=== PATIENT | male | born 1995 | race Caucasian/White ===

== ENCOUNTER 2019-11-29 17:06 | Emergency (ER) | payer BC, SELFPAY ==
--- NOTE | ~2019-11-29 | XR_ITS ---
XR tibia fibula RT 2V DATE: 11/29/2019 17:44 INDICATION: Swelling and bruising; unknown injury. TECHNIQUE: AP and lateral views COMPARISON: None FINDINGS: No fracture or dislocation, periosteal reaction or bone destruction. IMPRESSION: Negative Reviewed, dictated and finalized at location A. IMPRESSION: Negative
[2019-11-29 17:20] VITALS: BP 145/85; PULSE 85; RESP 14; TEMP 37.2; O2SAT 99
--- NOTE | 2019-11-29 17:44 | ED.EXTPRO ---
HPI - Extremity Problem General Chief complaint: Extremity Problem,Nontraumatic Stated complaint: right leg swelling Source: patient Mode of arrival: ambulatory History of Present Illness HPI Narrative: this is a 24-year-old male that presents with some injury to his right mid rosas after he inadvertently fell, the patient was intoxicated at the time and not sure of any of the details, apparently on Tuesday while intoxicated he fell and currently has hematoma to his anterior mid rosas with some bruising around the the ankle not sure of how he fell currently his pain is well-controlled has good range of motion in his foot and ankle and there was no issues with calf pain or knee pain. The area is warm to touch in the anterior right rosas. Complaint: extremity pain and extremity swelling Onset (ago): day(s) Pain Consistency: constant Location: right Severity scale (1-10): 2 Quality: aching Radiation: none Relieving factors: nothing Exacerbating factors: weight bearing Related Data Home Medications Medication Instructions Recorded Confirmed No Home Medications 11/29/19 11/29/19 Allergies Allergy/AdvReac Type Severity Reaction Status Date / Time No Known Allergies Allergy Verified 11/29/19 17:26 Review of Systems Review of Systems: All systems reviewed & are unremarkable except as noted in HPI and below PMFSH Past Medical History Medical History Patient denies medical problems Exam Const: General: no acute distress and alert Orientation/consciousness: patient oriented x3 Limitations: altered mental status HENMT: Head: normal to inspection Eyes: Conjunctivae: conjunctivae normal Pupils: Equal, round and reactive pupils present EOM: EOMs intact bilaterally Neck: Neck: normal visual inspection and no lymphadenopathy Chest: Chest palpation & inspection: normal inspection of the chest Resp: Effort & Inspection: normal respiratory effort Cardio: Rate: regular rate Rhythm: regular rhythm GI: GI Palp: Yes Soft to palpation Auscultation: normal bowel sounds : Testes: Testes normal Skin: General skin exam: normal color Rashes: no rashes Neuro: General: patient oriented x3, moves all extremities, no meningeal signs and no focal motor deficits Extrem: Other: small hematoma that is warm and tender in his right mid rosas with ankle bruising with good range of motion in his ankle foot and knee. Course Course Emergency Course: Patient appears comfortable declined any type of pain medication. Vital Signs Vital signs: Vital Signs Temperature 37.2 C 11/29/19 17:20 Pulse Rate 85 11/29/19 17:20 Respiratory Rate 14 11/29/19 17:20 Blood Pressure 145/85 H 11/29/19 17:20 Pulse Oximetry 99 11/29/19 17:20 Temperature 37.2 C 11/29/19 17:20 Pulse Rate 85 11/29/19 17:20 Respiratory Rate 14 11/29/19 17:20 Blood Pressure 145/85 H 11/29/19 17:20 Pulse Oximetry 99 11/29/19 17:20 Critical Care Time Critical Care Time Critical Care Time: No Discharge Plan Discharge Clinical Impression: Cellulitis, Hematoma Patient Disposition: Home, Self-Care Condition: Stable Instructions: Antibiotic Form, Cellulitis (ED), Contusion in Adults (ED) Prescriptions: No Action No Home Medications RF: 0 Follow-up/Referrals: UNKNOWN,DOCTOR [Primary Care Provider] -
[2019-11-29] MEDS: cefTRIAXone 1 GM VIAL IM (18:00)
[2019-11-29] MEDS: LIDOCAINE HCL 1% LOCAL INJ 20 ML VIAL (18:00)
[2019-11-29 18:29] VITALS: RESP 15; O2SAT 100
== END 2019-11-29 18:29 | disposition home or self-care (01) ==
PROVIDERS: Emergency Provider Emergency Medicine
DX: S80.11XA Contusion of right lower leg, initial encounter (principal); S90.01XA Contusion of right ankle, initial encounter; L03.90 Cellulitis, unspecified; W19.XXXA Unspecified fall, initial encounter
CPT/HCPCS: 73590; 96372; 99283; J0696

== ENCOUNTER 2020-12-30 12:53 | Outpatient (CLI) | payer BC, SELFPAY ==
[2020-12-30 14:22] LABS: SARS-CoV-2 RNA PCR Negative (Negative)
== END 2020-12-30 12:54 | disposition home or self-care (01) ==
PROVIDERS: PCP Internal Medicine; Visit Provider Internal Medicine
DX: Z20.822 Contact with and (suspected) exposure to COVID-19 (principal)
CPT/HCPCS: C9803; U0003; U0005

== ENCOUNTER 2024-02-24 01:13 | Emergency (ER) | payer BC, SELFPAY ==
--- NOTE | ~2024-02-24 | CT_ITS ---
EXAMINATION: CT lumbar spine wo con DATE: 02/24/2024 01:36 INDICATION: Nontraumatic low back pain TECHNIQUE: Computed tomography (CT) of the lumbar spine was performed without intravenous contrast. A utomated exposure control and iterative reconstruction technique were employed. The dose-length produ ct was 1259.31 mGy-cm. COMPARISON: 01/27/2018 FINDINGS: Bone alignment is normal. Vertebral body heights are normal. No fracture. Unchanged small Schmorl's n odes at the inferior endplate of T10 through the superior endplate of L1. There is mild disc height l oss at L3-L4. There is a developmentally small lumbar central canal with short pedicles. Heterogeneou s diffuse hepatic steatosis. Visualized paravertebral soft tissues are unremarkable. The following di sc levels are specifically discussed: T9-T10 through L1-L2: The disc does not extend beyond the endplate margin. There is mild bilateral fa cet joint osteoarthritis. There is no neural foraminal stenosis. There is no central canal stenosis. L2-L3: Disc is mildly bulging. There is mild bilateral facet joint osteoarthritis. There is no neural foraminal stenosis. There is mild central canal stenosis. L3-L4: Disc is bulging. There is mild bilateral facet joint osteoarthritis. There is mild bilateral n eural foraminal stenosis. There is mild to moderate central canal stenosis. L4-L5: Disc is bulging. There is mild to moderate bilateral facet joint osteoarthritis. There is mode rate left and mild to moderate right neural foraminal stenosis. There is mild central canal stenosis. L5-S1: Disc is bulging. There is mild to moderate bilateral facet joint osteoarthritis. There is mode rate bilateral neural foraminal stenosis. There is mild central canal stenosis. IMPRESSION: 1. Mild interval progression in still mild lumbar central canal stenosis superimposed over a congenit ally small lumbar central canal. Reviewed, dictated and finalized at location A. ISH COLLECTOR IMPRESSION: 1. Mild interval progression in still mild lumbar central canal stenosis superi mposed over a congenitally small lumbar central canal.
[2024-02-24 01:13] VITALS: BP 160/106; PULSE 102; RESP 16; TEMP 36.4; O2SAT 98
--- NOTE | 2024-02-24 01:19 | ED.GENADULT ---
HPI - General Adult General Chief complaint: Back Pain/Injury Stated complaint: back pain Time Seen by Provider: 02/24/24 01:15 History of Present Illness HPI narrative: Prashanth is a previously healthy 28M that presented to the ED with back pain. He has had non-radiating bilateral low back pain for 2 weeks but it was severe tonight so he came to the ED. There have been no falls, trauma or injury. No loss of bowel/bladder control or fevers reported. Related Data Allergies Allergy/AdvReac Type Severity Reaction Status Date / Time No Known Allergies Allergy Verified 02/24/24 01:15 Review of Systems Review of Systems: All systems reviewed & are unremarkable except as noted in HPI and below [facility] Past Medical History Medical History (Updated 02/24/24 @ 02:02 by Jesus Alberto Rodriguez DO) Patient denies medical problems Exam Const: General: cooperative, healthy appearing, comfortable, no acute distress, well developed, alert, awake and Physically active Orientation/consciousness: oriented to person, oriented to place and oriented to time HENMT: Head: normal to inspection, normocephalic and atraumatic Ears: hearing grossly normal bilaterally and external ears normal Face/Nose/Sinus: Normal external nose present Eyes: General: appearance normal, both eyes and all related structures Periorbital: periorbital findings normal Sclera: sclerae normal Pupils: Equal, round and reactive pupils present Neck: Neck: normal visual inspection Chest: Chest palpation & inspection: normal inspection of the chest Resp: Effort & Inspection: normal respiratory effort, able to speak in complete sentences and no respiratory distress Cardio: Jugular venous distension: no JVD Back/Spine/Pelvis: Other: Midline tenderness in the lumbar spine. Bilateral hypertonic musculature in the lumbar spine. 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 Mild spinal canal stenosis L3-4 from disc bulge No acute findings CBC unremarkable. Chemistries showed mildly elevated LFTs. He was instructed to f/u with his primary on this. Vital Signs Vital signs: Vital Signs Temperature 97.5 F L 11/29/24 01:13 Pulse Rate 102 H 02/24/24 01:13 Respiratory Rate 16 02/24/24 01:13 Blood Pressure 160/106 H 02/24/24 01:13 Pulse Oximetry 98 02/24/24 01:13 Oxygen Delivery Room Air 02/24/24 01:13 Temperature 97.5 F L 02/24/24 01:13 Pulse Rate 102 H 02/24/24 01:13 Respiratory Rate 16 02/24/24 01:13 Blood Pressure 160/106 H 02/24/24 01:13 Pulse Oximetry 98 02/24/24 01:13 Oxygen Delivery Room Air 02/24/24 01:13 Medical Decision Making Vital Signs Vital Signs: Vital Signs Temperature 97.5 F L 02/24/24 01:13 Pulse Rate 102 H 02/24/24 01:13 Respiratory Rate 16 02/24/24 01:13 Blood Pressure 160/106 H 02/24/24 01:13 Pulse Oximetry 98 02/24/24 01:13 Oxygen Delivery Room Air 02/24/24 01:13 Temperature 97.5 F L 02/24/24 01:13 Pulse Rate 102 H 02/24/24 01:13 Respiratory Rate 16 02/24/24 01:13 Blood Pressure 160/106 H 02/24/24 01:13 Pulse Oximetry 98 02/24/24 01:13 Oxygen Delivery Room Air 02/24/24 01:13 Lab Data 02/24/24 01:37 02/24/24 01:37 Labs: Lab Results 02/24/24 02/24/24 Range/Units 01:37 02:02 WBC 8.1 (4.8-10.8) K/mm3 RBC 5.08 (4.70-6.10) M/mm3 Hgb 16.2 (14.0-18.0) g/dL Hct 46.8 (40.0-54.0) % MCV 92.1 (78.0-102.0) fL MCH 31.9 H (27.0-31.0) pg MCHC 34.6 (32-36) g/dL RDW 13.3 (11.6-14.4) % Plt Count 164 (150-420) K/mm3 MPV 8.6 L (8.7-11.0) fl Immature Gran % (Auto) 0.2 H (0.0-0.0) % Neut % (Auto) 33.6 L (50.0-70.0) % Lymph % (Auto) 53.2 H (18.0-42.0) % [place] % (Auto) 11.5 H (2.0-11.0) % Eos % (Auto) 0.9 L (1.0-6.0) % Baso % (Auto) 0.6 (0.0-1.0) % Lymph # (Auto) 4.30 (1.10-4.50) K/mm3 [place] # (Auto) 0.93 H (0.10-0.90) K/mm3 Eos # (Auto) 0.07 (0.02-0.50) K/mm3 Baso # (Auto) 0.05 (0.00-0.10) K/mm3 Abs Immat Gran (auto) 0.02 H (0.00-0.00) K/mm3 Absolute Neuts (auto) 2.72 (1.70-7.20) K/mm3 Absolute Nucleated RBC 0.00 (0.00-0.00) K/mm3 Nucleated RBC % 0.0 (0-0.0) % Sodium 142 (136-145) mmol/L Potassium 4.4 (3.5-5.1) mmol/L Chloride 101 (98-108) mmol/L Carbon Dioxide 31 (21-32) mmol/L Anion Gap 10 (4-12) mmol/L BUN 9 (7-18) mg/dL Creatinine 1.02 (0.70-1.30) mg/dL Estim Creat Clear Calc 113 ml/min Estimated GFR > 60 (59 - ) Glucose 100 H (70-99) mg/dL Calculated Osmolality 292 (285-295) mOsm/kg Calcium 8.6 (8.5-10.1) mg/dL Total Bilirubin 0.4 (0.00-1.00) mg/dL AST 95 H (15-37) U/L ALT 75 H (16-63) U/L Alkaline Phosphatase 108 (46-116) U/L Total Protein 7.9 (6.4-8.2) g/dL Albumin 3.8 (3.4-5.0) g/dL Urine Color Light yellow (Yellow) Urine Appearance Clear (Clear) Urine pH 6.0 (5.0-8.0) Ur Specific [place] <= 1.005 L (1.010-1.020) Urine Protein 1+ H (Negative) Urine Glucose (UA) Negative (Negative) Urine Ketones Negative (Negative) Ur Blood (Man) Negative (Negative) Urine Nitrate Negative (Negative) Urine Bilirubin Negative (Negative) Urine Urobilinogen 0.2 (0.2-1.0) mg/dL Leukocyte Esterase Rfl Negative (Negative) SINGH/UL Urine RBC 0-2 (0-2) /hpf Urine WBC 0-3 (0-3) /hpf Ur Squamous Epith Cells None seen (Few) /hpf Urine Bacteria None seen (None) /hpf Discharge Plan Discharge Clinical Impression: Bulge of lumbar disc without myelopathy, Transaminitis Patient Disposition: Home, Self-Care Condition: Stable Instructions: Antibiotic Form Prescriptions: New cyclobenzaprine 10 mg tablet 10 mg PO TID Qty: 20 0RF hydrocodone-acetaminophen 5-325 mg tablet 1 tablet PO Q8H PRN (Reason: pain) Qty: 10 0RF Follow-up/Referrals: Álvaro Metcalf MD [Primary Care Provider] - Stand Alone Forms: Work/School Release IP
[2024-02-24] MEDS: HYDROcodone/acetaminophen (*CRX) 5-325 MG TABLET 1 TAB PO (01:36)
[2024-02-24] MEDS: CYCLOBENZAPRINE HCL 10 MG TABLET PO (01:36)
[2024-02-24] MEDS: KETOROLAC 30 MG/ML VIAL (*BKC) IM (01:37)
[2024-02-24 01:41] LABS: Basophils Absolute Auto 0.05 K/mm3 (0.00-0.10); Basophils Percent Auto 0.6 % (0.0-1.0); Eosinophils Absolute Auto 0.07 K/mm3 (0.02-0.50); Eosinophils Percent Auto 0.9 % (1.0-6.0); Hematocrit 46.8 % (40.0-54.0); Hemoglobin 16.2 g/dL (14.0-18.0); Immature Granulocyte Absolute 0.02 K/mm3 (0.00-0.00); Immature Granulocyte Percent A 0.2 % (0.0-0.0); Lymphocytes Percent Auto 53.2 % (18.0-42.0); Mean Corpuscular HGB Conc 34.6 g/dL (32-36); Mean Corpuscular Hemoglobin 31.9 pg (27.0-31.0); Mean Corpuscular Volume 92.1 fL (78.0-102.0); Mean Platelet Volume 8.6 fl (8.7-11.0); Monocytes Absolute Auto 0.93 K/mm3 (0.10-0.90); Monocytes Percent Auto 11.5 % (2.0-11.0); Neutrophils Absolute Auto 2.72 K/mm3 (1.70-7.20); Neutrophils Percent Auto 33.6 % (50.0-70.0); Platelet Count Result 164 K/mm3 (150-420); Red Blood Count 5.08 M/mm3 (4.70-6.10); Red Cell Distribution Width 13.3 % (11.6-14.4); White Blood Count 8.1 K/mm3 (4.8-10.8)
[2024-02-24 01:57] LABS: Alanine Aminotransferase 75 U/L (16-63); Albumin Level 3.8 g/dL (3.4-5.0); Alkaline Phosphatase 108 U/L (46-116); Anion Gap 10 mmol/L (4-12); Aspartate Amino Transferase 95 U/L (15-37); Bilirubin,Total 0.4 mg/dL (0.00-1.00); Blood Urea Nitrogen 9 mg/dL (7-18); Calcium 8.6 mg/dL (8.5-10.1); Carbon Dioxide 31 mmol/L (21-32); Chloride 101 mmol/L (98-108); Estimated CRCL calculation 113 ml/min; Estimated Glomerular Filt Rate > 60; Glucose 100 mg/dL (70-99); Osmolality Calculated 292 mOsm/kg (285-295); Potassium 4.4 mmol/L (3.5-5.1); Sodium 142 mmol/L (136-145); Total Protein 7.9 g/dL (6.4-8.2)
[2024-02-24 02:04] LABS: Add Urine Microscopic? YES; Appearance Urine Clear (Clear); Bilirubin Urine Negative (Negative); Blood Urine Negative (Negative); Color Urine Light Yellow (Yellow); Glucose Urine UA Negative (Negative); Ketones Urine Negative (Negative); Leukocyte Esterase Ur Negative LEU/UL (Negative); Nitrate Urine Negative (Negative); Protein Urine 1+ (Negative); Specific Grav Ur <= 1.005 (1.010-1.020); Urobilinogen Urine 0.2 mg/dL (0.2-1.0)
[2024-02-24 02:22] LABS: Bacteria Urine None seen /hpf; RBC Urine 0-2 /hpf (0-2); Squamous Epithelial Cell Urine None seen /hpf (Few); WBC Urine 0-3 /hpf (0-3)
[2024-02-24 02:33] VITALS: BP 139/91; PULSE 90; RESP 18; TEMP 36.8; O2SAT 94
== END 2024-02-24 02:34 | disposition home or self-care (01) ==
PROVIDERS: Emergency Provider Family Medicine; PCP Internal Medicine
DX: M51.369 Other intervertebral disc degeneration, lumbar region without mention of lumbar back pain or lower extremity pain (principal); R74.01 Elevation of levels of liver transaminase levels
CPT/HCPCS: 36415; 72131; 80053; 81001; 85025; 96372; 99284; A9270; J1885

== ENCOUNTER 2024-04-05 17:35 | Emergency (ER) | payer BC, SELFPAY ==
[2024-04-05] VITALS (7 sets, daily range): BP systolic 132–151; BP diastolic 68–103; PULSE 89–118; RESP 10–22; TEMP 36.9–37; O2SAT 94–100
--- NOTE | ~2024-04-05 | XR_ITS ---
EXAMINATION: XR chest 1V portable Exam Date/Time: 04/05/2024 17:43 BLOCK BREAKER OPERATOR HISTORY: chest pain Comparison: 02/01/2014. RESULT: Lines, tubes, and devices: None. Lungs and pleura: Subsegmental left medial basilar opacity. Cardiomediastinal silhouette: Stable. Other: No acute osseous or upper abdominal finding. IMPRESSION: Subsegmental left medial basilar atelectasis or consolidation. Reviewed, dictated and finalized at location K. K BREAKER OPERATOR
--- NOTE | 2024-04-05 17:44 | ECG_ITS ---
Test Date: 2024-04-05 17:44:40 Measurements Intervals [place] Rate: 107 P: 53 W[place]: 173 QRS: 84 QRSD: 97 T: 65 QT: 317 QTc: 423 Interpretive Statements SINUS TACHYCARDIA No previous ECG available for comparison Electronically Signed On 04-06-2024 16:17:11 CLERK CASHIER by Robina Sánchez M.D.
--- NOTE | 2024-04-05 17:44 | ED_ITS ---
HPI - General Adult General Chief complaint: Chest Pain Stated complaint: CHEST PAIN Time Seen by Provider: 04/05/24 17:38 History of Present Illness HPI narrative: Prashanth is a 28M with a PMH of etoh abuse, and a strong cardiac history in the family that presented to the ED with chest pain for 2 hours that radiates into his arms that is associated with anxiety and lightheadedness. However, he admits that he has been drinking. Related Data Allergies Allergy/AdvReac Type Severity Reaction Status Date / Time No Known Allergies Allergy Verified 02/24/24 01:15 Review of Systems 2 Review of Systems: All systems reviewed & are unremarkable except as noted in HPI and below [facility] Past Medical History Medical History (Updated 04/05/24 @ 21:22 by Jesus Alberto Rodriguez DO) Patient denies medical problems Exam 2 Const: General: cooperative, healthy appearing, comfortable, no acute distress, well developed, alert, awake and Physically active O rientation/consciousness: oriented to person, oriented to place and oriented to time Other: In mild distress holding his left chest HENMT: Head: normal to inspection, normocephalic and atraumatic Ears: h earing grossly normal bilaterally and external ears normal Face/Nose/Sinus: N ormal external nose present Eyes: General: appearance normal, both eyes and all related structures P eriorbital: periorbital findings normal Sclera: sclerae normal Pupils: E qual, round and reactive pupils present Neck: Neck: normal visual inspection Chest: Chest palpation & inspection: normal inspection of the chest Resp: Effort & Inspection: normal respiratory effort, able to speak in complete sentences and no respiratory distress Auscultation: clear to auscultation bilaterally Cardio: Jugular venous distension: no JVD Rate: regular rate Rhythm: r egular rhythm GI: Inspection: normal to inspection GI Palp: Yes Soft to palpation A uscultation: normal bowel sounds Skin: General skin exam: normal color and no rashes or lesions noted Neuro: General: oriented to person, oriented to place and oriented to time Cranial nerves: Yes Equal, round and reactive pupils present Extrem: General: normal to inspection Course Course Emergency Course: Ordered labs, CXR and EKG as well as aspirin and nitro EKG showed sinus tachycardia with a rate of 107, normal axis and no ST elevation/depression Pain went from a 5 down to a 2 with nitro Original tropoinin and repeat were normal. His chest pain had essentially resolved. I explained to him that I would like for him to be observed but adamantly refused. As he was asymptomatic he was discharged to f/u with his PCP. Vital Signs Vital signs: Vital Signs Pulse Rate 115 H 04/05/24 17:35 Oxygen Delivery Room Air 04/05/24 17:35 Temperature 98.5 F 04/05/24 17:46 Pulse Rate 115 H 04/05/24 18:47 Respiratory Rate 12 04/05/24 18:47 Blood Pressure 136/103 H 04/05/24 19:01 Pulse Oximetry 94 04/05/24 19:01 Oxygen Delivery Room Air 04/05/24 20:51 Medical Decision Making Vital Signs Vital Signs: Vital Signs Pulse Rate 115 H 04/05/24 17:35 Oxygen Delivery Room Air 04/05/24 17:35 Temperature 98.5 F 04/05/24 17:46 Pulse Rate 115 H 04/05/24 18:47 Respiratory Rate 12 04/05/24 18:47 Blood Pressure 136/103 H 04/05/24 19:01 Pulse Oximetry 94 04/05/24 19:01 Oxygen Delivery Room Air 04/05/24 20:51 Lab Data 04/05/24 17:57 04/05/24 17:57 Labs: Lab Results 04/05/24 04/05/24 04/05/24 Range/Units 17:57 19:10 20:47 WBC 7.5 (4.8-10.8) K/mm3 RBC 4.74 (4.70-6.10) M/mm3 Hgb 14.8 (14.0-18.0) g/dL Hct 44.2 (40.0-54.0) % MCV 93.2 (78.0-102.0) fL MCH 31.2 H (27.0-31.0) pg MCHC 33.5 (32-36) g/dL RDW 13.2 (11.6-14.4) % Plt Count 212 (150-420) K/mm3 MPV 8.5 L (8.7-11.0) fl Immature Gran % (Auto) 0.3 H (0.0-0.0) % Neut % (Auto) 37.5 L (50.0-70.0) % Lymph % (Auto) 48.4 H (18.0-42.0) % [place] % (Auto) 11.6 H (2.0-11.0) % Eos % (Auto) 1.5 (1.0-6.0) % Baso % (Auto) 0.7 (0.0-1.0) % Lymph # (Auto) 3.63 (1.10-4.50) K/mm3 [place] # (Auto) 0.87 (0.10-0.90) K/mm3 Eos # (Auto) 0.11 (0.02-0.50) K/mm3 Baso # (Auto) 0.05 (0.00-0.10) K/mm3 Abs Immat Gran (auto) 0.02 H (0.00-0.00) K/mm3 Absolute Neuts (auto) 2.82 (1.70-7.20) K/mm3 Absolute Nucleated RBC 0.00 (0.00-0.00) K/mm3 Nucleated RBC % 0.0 (0-0.0) % PT 10.9 (9.50-12.1) Seconds INR 1.0 Sodium 143 (136-145) mmol/L Potassium 4.0 (3.5-5.1) mmol/L Chloride 106 (98-108) mmol/L Carbon Dioxide 26 (21-32) mmol/L Anion Gap 11 (4-12) mmol/L BUN 8 (7-18) mg/dL Creatinine 0.97 (0.70-1.30) mg/dL Estim Creat Clear Calc 118 ml/min Estimated GFR > 60 (59 - ) Glucose 95 (70-99) mg/dL Calculated Osmolality 294 (285-295) mOsm/kg Calcium 7.9 L (8.5-10.1) mg/dL Magnesium 1.7 L (1.8-2.4) mg/dL Total Bilirubin 0.2 (0.00-1.00) mg/dL AST 53 H (15-37) U/L ALT 60 (16-63) U/L Alkaline Phosphatase 97 (46-116) U/L Troponin I 13.3 15.2 (0.00-60.4) ng/L NT-Pro-B Natriuret Pep 13 (0-125) pg/mL Total Protein 7.2 (6.4-8.2) g/dL Albumin 3.6 (3.4-5.0) g/dL Lipase 34 (16-77) U/L Urine Opiates Screen Negative (Negative) Urine Methadone Screen Negative (Negative) Ur Barbiturates Screen Negative (Negative) Ur Phencyclidine Scrn Negative (Negative) Ur Amphetamine Screen Negative (Negative) U Benzodiazepines Scrn Negative (Negative) Urine Cocaine Screen Negative (Negative) U Cannabinoids Screen Negative (Negative) Ethyl Alcohol 459 H* (0-6) mg/dL Discharge Plan Discharge Clinical Impression: Chest pain Patient Disposition: Home, Self-Care Condition: Stable Instructions: Chest Pain (ED) Patient Language: Irish Prescriptions: No Action cyclobenzaprine 10 mg tablet 10 mg PO TID Qty: 20 0RF hydrocodone-acetaminophen 5-325 mg tablet 1 tablet PO Q8H PRN (Reason: pain) Qty: 10 0RF Follow-up/Referrals: Álvaro Metcalf MD [Primary Care Provider] -
[2024-04-05] MEDS: ASPIRIN 81 MG CHEWABLE TABLET 324 MG PO (17:52)
[2024-04-05] MEDS: NITROGLYCERIN SL 0.4 MG TABLET SUBLINGUAL (17:53)
[2024-04-05 18:02] LABS: Basophils Absolute Auto 0.05 K/mm3 (0.00-0.10); Basophils Percent Auto 0.7 % (0.0-1.0); Eosinophils Absolute Auto 0.11 K/mm3 (0.02-0.50); Eosinophils Percent Auto 1.5 % (1.0-6.0); Hematocrit 44.2 % (40.0-54.0); Hemoglobin 14.8 g/dL (14.0-18.0); Immature Granulocyte Absolute 0.02 K/mm3 (0.00-0.00); Immature Granulocyte Percent A 0.3 % (0.0-0.0); Lymphocytes Absolute Auto 3.63 K/mm3 (1.10-4.50); Lymphocytes Percent Auto 48.4 % (18.0-42.0); Mean Corpuscular HGB Conc 33.5 g/dL (32-36); Mean Corpuscular Hemoglobin 31.2 pg (27.0-31.0); Mean Corpuscular Volume 93.2 fL (78.0-102.0); Mean Platelet Volume 8.5 fl (8.7-11.0); Monocytes Absolute Auto 0.87 K/mm3 (0.10-0.90); Monocytes Percent Auto 11.6 % (2.0-11.0); Neutrophils Absolute Auto 2.82 K/mm3 (1.70-7.20); Neutrophils Percent Auto 37.5 % (50.0-70.0); Platelet Count Result 212 K/mm3 (150-420); Red Blood Count 4.74 M/mm3 (4.70-6.10); Red Cell Distribution Width 13.2 % (11.6-14.4); White Blood Count 7.5 K/mm3 (4.8-10.8)
--- NOTE | 2024-04-05 18:06 | PC.NURSE ---
1758-PAIN WENT FROM 08/04 TO 2, PER ERP TO HOLD THE OTHER NITRO TABS
[2024-04-05 18:19] LABS: Prothrombin Time 10.9 Seconds (9.50-12.1)
[2024-04-05 18:24] LABS: Alanine Aminotransferase 60 U/L (16-63); Albumin Level 3.6 g/dL (3.4-5.0); Alkaline Phosphatase 97 U/L (46-116); Anion Gap 11 mmol/L (4-12); Aspartate Amino Transferase 53 U/L (15-37); Bilirubin,Total 0.2 mg/dL (0.00-1.00); Blood Urea Nitrogen 8 mg/dL (7-18); Calcium 7.9 mg/dL (8.5-10.1); Carbon Dioxide 26 mmol/L (21-32); Chloride 106 mmol/L (98-108); Estimated CRCL calculation 118 ml/min; Estimated Glomerular Filt Rate > 60; Glucose 95 mg/dL (70-99); NT Pro B Type Natriuretic Pept 13 pg/mL (0-125); Osmolality Calculated 294 mOsm/kg (285-295); Sodium 143 mmol/L (136-145); Total Protein 7.2 g/dL (6.4-8.2)
[2024-04-05 18:50] LABS: Ethanol 459 mg/dL (0-6)
--- NOTE | 2024-04-05 19:07 | PC.NURSE ---
PT IS ALERT AND TALKING WITH FATHER IN EXAM ROOM. URINE OBTAINED AND SENT TO LAB. NAD NOTED. REPORT TO SANDRITA LINDSEY.
[2024-04-05 19:19] LABS: Amphetamine Screen Urine Negative (Negative); Barbiturate Screen Urine Negative (Negative); Benzodiazepines Screen Urine Negative (Negative); Cannabinoid Screen Urine Negative (Negative); Cocaine Screen Urine Negative (Negative); Methadone Screen Urine Negative (Negative); Opiate Screen Urine Negative (Negative); Phencyclidine Screen Urine Negative (Negative)
[2024-04-05 19:21] LABS: Lipase 34 U/L (16-77); Magnesium 1.7 mg/dL (1.8-2.4); Troponin I 13.3 ng/L (0.00-60.4)
[2024-04-05] MEDS: NICOTINE (*PBKC) 21 MG PATCH 1 PATCH TRANSDERM (20:17)
[2024-04-05 21:08] LABS: Troponin I 15.2 ng/L (0.00-60.4)
== END 2024-04-05 21:28 | disposition home or self-care (01) ==
PROVIDERS: Emergency Provider Family Medicine; PCP Internal Medicine
DX: R07.9 Chest pain, unspecified (principal)
CPT/HCPCS: 36415; 71045; 80053; 80307; 82077; 83690; 83735; 83880; 84484; 85025; 85610; 93005; 99284; A9270

== ENCOUNTER 2024-05-06 15:35 | Emergency (ER) | payer BC, SELFPAY ==
--- NOTE | ~2024-05-06 | XR_ITS ---
CHEST RADIOGRAPH CLINICAL HISTORY: hematemesis . COMPARISON: 04/05/2024 TECHNIQUE: Single portable view of the chest. FINDINGS The cardiomediastinal silhouette is unremarkable. The lungs are clear. Visualized osseous structures and soft tissues are unremarkable. IMPRESSION: No focal infiltrate or effusion. Reviewed, dictated and finalized at location A. ECTIVE SIGNAL REPAIRER
[2024-05-06 15:35] VITALS: O2SAT 95
--- OUTSIDE RECORDS SUMMARY | 2024-05-06 15:36 | XMS_ITS | Clinical Summary ---
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 Gender Identity Not on file Sexual Orientation Not on file Plan of Treatment Health Maintenance Due Date Last Done Comments Annual Physical 1997 Hepatitis C 2012 DTaP, Tdap and Td Vaccines ( 1 - Tdap) 2013 Hepatitis B Vaccines (1 of 3 - 19+ 3-dose series) 2013 COVID-19 Vaccine (2023-2 5 season) 2023 Influenza Adult (#1) 2023 HPV Vaccines Aged Out No longer eligi ble based on patient's age to complete this topic Meningococcal B Vaccine Aged Out No l onger eligible based on patient's age to complete this topic Meningococcal Vaccine Aged Out No marlon jena eligible based on patient's age to complete this topic Pneumococcal Vaccine: Pediat rics (0 to 5 Years) and At-Risk Patients (6 to 64 Years) Aged Out No longer eligible b ased on patient's age to complete this topic RSV Immunizations Under 20 Months Aged Out No longer eligible based on patient's age to complete this topic
[2024-05-06 15:41] VITALS: BP 163/95; PULSE 99; RESP 18; TEMP 36.9; O2SAT 95
--- NOTE | 2024-05-06 15:41 | ED.GENADULT ---
HPI - General Adult General Chief complaint: Nausea/Vomiting/Diarrhea Stated complaint: n/v/d Time Seen by Provider: 05/06/24 15:37 History of Present Illness HPI narrative: Prashanth is a 28M with a PMH of etoh abuse that presented to the ED with a month of cough as well as a few episodes of hematemesis and melena yesterday. He drinks regularly and smokes 1.5 PPD. No CP at rest, No syncope. for the last month he has had epigastric pain and heartburn with eating or drinking anything. No weight changes or dysphagia. Related Data Home Medications ?Medication ?Instructions ?Recorded ?Confirmed ?Last Taken ?Type No Home Medications 04/05/24 04/05/24 Unknown History Allergies Allergy/AdvReac Type Severity Reaction Status Date / Time No Known Allergies Allergy Verified 05/06/24 15:45 Review of Systems Review of Systems: All systems reviewed & are unremarkable except as noted in HPI and below [facility] Past Medical History Medical History (Updated 05/06/24 @ 16:46 by Jesus Alberto Rodriguez DO) Patient denies medical problems Exam Const: General: cooperative, healthy appearing, comfortable, no acute distress, well developed, alert, awake and Physically active Orientation/consciousness: oriented to person, oriented to place and oriented to time HENMT: Head: normal to inspection, normocephalic and atraumatic Ears: hearing grossly normal bilaterally and external ears normal Face/Nose/Sinus: Normal external nose present Eyes: General: appearance normal, both eyes and all related structures Periorbital: periorbital findings normal Sclera: sclerae normal Pupils: Equal, round and reactive pupils present Neck: Neck: normal visual inspection Chest: Chest palpation & inspection: normal inspection of the chest Resp: Effort & Inspection: normal respiratory effort, able to speak in complete sentences and no respiratory distress Auscultation: clear to auscultation bilaterally Cardio: Jugular venous distension: no JVD Rate: regular rate Rhythm: regular rhythm GI: Inspection: normal to inspection GI Palp: Yes Soft to palpation Auscultation: normal bowel sounds Other: TTP in the epigastric region Skin: General skin exam: normal color and no rashes or lesions noted Neuro: General: oriented to person, oriented to place and oriented to time Cranial nerves: Yes Equal, round and reactive pupils present Extrem: General: normal to inspection Course Course Emergency Course: CHEST RADIOGRAPH CLINICAL HISTORY: hematemesis . COMPARISON: 04/05/2024 TECHNIQUE: Single portable view of the chest. FINDINGS The cardiomediastinal silhouette is unremarkable. The lungs are clear. Visualized osseous structures and soft tissues are unremarkable. IMPRESSION: No focal infiltrate or effusion. Labs were largely unremarkable but he did have good Hgb and platelets. PT/INR wnl. He was discharged on pantoprazole and given return precautions. It was emphasized that he f/u with his regular doctor and get a referral to GI Vital Signs Vital signs: Vital Signs Pulse Oximetry 95 05/06/24 15:35 Oxygen Delivery Room Air 05/06/24 15:35 Temperature 98.4 F 05/06/24 15:41 Pulse Rate 99 05/06/24 15:41 Respiratory Rate 18 05/06/24 15:41 Blood Pressure 163/95 H 05/06/24 15:41 Pulse Oximetry 95 05/06/24 15:41 Oxygen Delivery Room Air 05/06/24 15:41 Medical Decision Making Vital Signs Vital Signs: Vital Signs Pulse Oximetry 95 05/06/24 15:35 Oxygen Delivery Room Air 05/06/24 15:35 Temperature 98.4 F 05/06/24 15:41 Pulse Rate 99 05/06/24 15:41 Respiratory Rate 18 05/06/24 15:41 Blood Pressure 163/95 H 05/06/24 15:41 Pulse Oximetry 95 05/06/24 15:41 Oxygen Delivery Room Air 05/06/24 15:41 Lab Data 05/06/24 16:05 05/06/24 16:05 Labs: Lab Results 05/06/24 05/06/24 Range/Units 15:51 16:05 WBC 6.2 (4.8-10.8) K/mm3 RBC 4.73 (4.70-6.10) M/mm3 Hgb 15.0 (14.0-18.0) g/dL Hct 44.4 (40.0-54.0) % MCV 93.9 (78.0-102.0) fL MCH 31.7 H (27.0-31.0) pg MCHC 33.8 (32-36) g/dL RDW 13.3 (11.6-14.4) % Plt Count 173 (150-420) K/mm3 MPV 8.4 L (8.7-11.0) fl Immature Gran % (Auto) 0.3 H (0.0-0.0) % Neut % (Auto) 58.3 (50.0-70.0) % Lymph % (Auto) 23.7 (18.0-42.0) % [place] % (Auto) 15.9 H (2.0-11.0) % Eos % (Auto) 1.0 (1.0-6.0) % Baso % (Auto) 0.8 (0.0-1.0) % Lymph # (Auto) 1.46 (1.10-4.50) K/mm3 [place] # (Auto) 0.98 H (0.10-0.90) K/mm3 Eos # (Auto) 0.06 (0.02-0.50) K/mm3 Baso # (Auto) 0.05 (0.00-0.10) K/mm3 Abs Immat Gran (auto) 0.02 H (0.00-0.00) K/mm3 Absolute Neuts (auto) 3.59 (1.70-7.20) K/mm3 Absolute Nucleated RBC 0.00 (0.00-0.00) K/mm3 Nucleated RBC % 0.0 (0-0.0) % PT 10.6 (9.50-12.1) Seconds INR 1.0 Sodium 140 (136-145) mmol/L Potassium 3.5 (3.5-5.1) mmol/L Chloride 100 (98-108) mmol/L Carbon Dioxide 29 (21-32) mmol/L Anion Gap 11 (4-12) mmol/L BUN 6 L (7-18) mg/dL Creatinine 1.04 (0.70-1.30) mg/dL Estim Creat Clear Calc 110 ml/min Estimated GFR > 60 (59 - ) Glucose 133 H (70-99) mg/dL Calculated Osmolality 289 (285-295) mOsm/kg Calcium 8.6 (8.5-10.1) mg/dL Total Bilirubin 0.6 (0.00-1.00) mg/dL AST 91 H (15-37) U/L ALT 113 H (16-63) U/L Alkaline Phosphatase 87 (46-116) U/L Total Protein 7.5 (6.4-8.2) g/dL Albumin 3.7 (3.4-5.0) g/dL Lipase 31 (16-77) U/L Influenza A (RT-PCR) Negative (Negative) Influenza B (RT-PCR) Negative (Negative) RSV (RT-PCR) Negative (Negative) SARS-CoV-2 RNA (RT-PCR) Negative (Negative) Discharge Plan Discharge Clinical Impression: Chest pain due to GERD Patient Disposition: Home, Self-Care Condition: Stable Instructions: Diet for Stomach Ulcers and Gastritis (ED) Patient Language: Gibraltarian Prescriptions: New pantoprazole [Protonix] 40 mg tablet,delayed release (DR/EC) 40 mg PO HS 42 Days Qty: 42 0RF No Action No Home Medications Follow-up/Referrals: Álvaro Metcalf MD [Primary Care Provider] -
--- OUTSIDE RECORDS SUMMARY | 2024-05-06 16:04 | XMS_ITS | Clinical Summary ---
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
[2024-05-06 16:10] LABS: Basophils Absolute Auto 0.05 K/mm3 (0.00-0.10); Basophils Percent Auto 0.8 % (0.0-1.0); Eosinophils Absolute Auto 0.06 K/mm3 (0.02-0.50); Hematocrit 44.4 % (40.0-54.0); Immature Granulocyte Absolute 0.02 K/mm3 (0.00-0.00); Immature Granulocyte Percent A 0.3 % (0.0-0.0); Lymphocytes Absolute Auto 1.46 K/mm3 (1.10-4.50); Lymphocytes Percent Auto 23.7 % (18.0-42.0); Mean Corpuscular HGB Conc 33.8 g/dL (32-36); Mean Corpuscular Hemoglobin 31.7 pg (27.0-31.0); Mean Corpuscular Volume 93.9 fL (78.0-102.0); Mean Platelet Volume 8.4 fl (8.7-11.0); Monocytes Absolute Auto 0.98 K/mm3 (0.10-0.90); Monocytes Percent Auto 15.9 % (2.0-11.0); Neutrophils Absolute Auto 3.59 K/mm3 (1.70-7.20); Neutrophils Percent Auto 58.3 % (50.0-70.0); Platelet Count Result 173 K/mm3 (150-420); Red Blood Count 4.73 M/mm3 (4.70-6.10); Red Cell Distribution Width 13.3 % (11.6-14.4); White Blood Count 6.2 K/mm3 (4.8-10.8)
[2024-05-06 16:21] LABS: Prothrombin Time 10.6 Seconds (9.50-12.1)
[2024-05-06 16:25] LABS: Alanine Aminotransferase 113 U/L (16-63); Albumin Level 3.7 g/dL (3.4-5.0); Alkaline Phosphatase 87 U/L (46-116); Anion Gap 11 mmol/L (4-12); Aspartate Amino Transferase 91 U/L (15-37); Bilirubin,Total 0.6 mg/dL (0.00-1.00); Blood Urea Nitrogen 6 mg/dL (7-18); Calcium 8.6 mg/dL (8.5-10.1); Carbon Dioxide 29 mmol/L (21-32); Chloride 100 mmol/L (98-108); Estimated CRCL calculation 110 ml/min; Estimated Glomerular Filt Rate > 60; Glucose 133 mg/dL (70-99); Lipase 31 U/L (16-77); Osmolality Calculated 289 mOsm/kg (285-295); Potassium 3.5 mmol/L (3.5-5.1); Sodium 140 mmol/L (136-145); Total Protein 7.5 g/dL (6.4-8.2)
[2024-05-06 16:33] LABS: SARS-CoV-2 RNA PCR Negative (Negative)
[2024-05-06 16:34] LABS: Influenza A QL RT-PCR Negative (Negative); Influenza B QL RT-PCR Negative (Negative); RSV RNA, RT-PCR Negative (Negative)
[2024-05-06] MEDS: PANTOPRAZOLE 40 MG TABLET PO (16:48)
[2024-05-06 16:53] VITALS: BP 139/79; PULSE 91; RESP 16; TEMP 37.1; O2SAT 97
== END 2024-05-06 16:53 | disposition home or self-care (01) ==
PROVIDERS: Emergency Provider Family Medicine; PCP Internal Medicine
DX: R07.9 Chest pain, unspecified (principal); K21.9 Gastro-esophageal reflux disease without esophagitis; Z20.822 Contact with and (suspected) exposure to COVID-19
CPT/HCPCS: 36415; 71045; 80053; 83690; 85025; 85610; 87637; 99283; A9270

== ENCOUNTER 2024-05-28 17:46 | Emergency (ER) | payer BC, SELFPAY ==
[2024-05-28 17:46] VITALS: BP 140/87; PULSE 106; RESP 18; TEMP 37.3; O2SAT 95
[2024-05-28 17:50] VITALS: O2SAT 98
--- NOTE | 2024-05-28 17:58 | ED.GENADULT ---
HPI - General Adult General Chief complaint: Upper Respiratory Infection Stated complaint: cough; fever Time Seen by Provider: 05/28/24 17:52 History of Present Illness HPI narrative: Prashanth is a 28M with a PMH of GERD, tobacco abuse and etoh abuse that presented to the ED with a fever, worsening cough and left ear pain for the last few days as well as body aches and fatigue. No CP, lightheadedness or vomiting. Related Data Allergies Allergy/AdvReac Type Severity Reaction Status Date / Time No Known Allergies Allergy Verified 05/28/24 18:23 Review of Systems Review of Systems: All systems reviewed & are unremarkable except as noted in HPI and below [facility] Past Medical History Medical History (Updated 05/28/24 @ 18:49 by Jesus Alberto Rodriguez DO) Patient denies medical problems Exam Const: General: cooperative, healthy appearing, comfortable, no acute distress, well developed, alert, awake and Physically active Orientation/consciousness: oriented to person, oriented to place and oriented to time HENMT: Head: normal to inspection, normocephalic and atraumatic Ears: hearing grossly normal bilaterally and external ears normal Face/Nose/Sinus: Normal external nose present Eyes: General: appearance normal, both eyes and all related structures Periorbital: periorbital findings normal Sclera: sclerae normal Pupils: Equal, round and reactive pupils present Neck: Neck: normal visual inspection Chest: Chest palpation & inspection: normal inspection of the chest Resp: Effort & Inspection: normal respiratory effort, able to speak in complete sentences and no respiratory distress Auscultation: clear to auscultation bilaterally Cardio: Jugular venous distension: no JVD Rate: regular rate Rhythm: regular rhythm GI: Inspection: normal to inspection GI Palp: Yes Soft to palpation Auscultation: normal bowel sounds Skin: General skin exam: normal color and no rashes or lesions noted Neuro: General: oriented to person, oriented to place and oriented to time Cranial nerves: Yes Equal, round and reactive pupils present Extrem: General: normal to inspection Course Course Emergency Course: Ordered viral testing, CXR and labs CHEST RADIOGRAPH CLINICAL HISTORY: cough, fever . COMPARISON: None available TECHNIQUE: Single portable view of the chest. FINDINGS The cardiomediastinal silhouette is unremarkable. Patchy groundglass opacification within the right upper lobe for which an infiltrate is suspected. The remainder of the lungs are clear. IMPRESSION: Right upper lobe infiltrate suspected Given prednisone and levofloxacin. +COVID test. Vital Signs Vital signs: Vital Signs Temperature 99.1 F 05/28/24 17:46 Pulse Rate 106 H 05/28/24 17:46 Respiratory Rate 18 05/28/24 17:46 Blood Pressure 140/87 05/28/24 17:46 Pulse Oximetry 95 05/28/24 17:46 Oxygen Delivery Room Air 05/28/24 17:46 Temperature 98.8 F 05/28/24 18:57 Pulse Rate 94 05/28/24 18:57 Respiratory Rate 15 05/28/24 18:57 Blood Pressure 137/87 05/28/24 18:57 Pulse Oximetry 96 05/28/24 18:57 Oxygen Delivery Room Air 05/28/24 18:57 Medical Decision Making Vital Signs Vital Signs: Vital Signs Temperature 99.1 F 05/28/24 17:46 Pulse Rate 106 H 05/28/24 17:46 Respiratory Rate 18 05/28/24 17:46 Blood Pressure 140/87 05/28/24 17:46 Pulse Oximetry 95 05/28/24 17:46 Oxygen Delivery Room Air 05/28/24 17:46 Temperature 98.8 F 05/28/24 18:57 Pulse Rate 94 05/28/24 18:57 Respiratory Rate 15 05/28/24 18:57 Blood Pressure 137/87 05/28/24 18:57 Pulse Oximetry 96 05/28/24 18:57 Oxygen Delivery Room Air 05/28/24 18:57 Lab Data 05/28/24 18:12 05/28/24 18:13 Labs: Lab Results 05/28/24 05/28/24 05/28/24 Range/Units 17:57 18:12 18:13 WBC 12.5 H (4.8-10.8) K/mm3 RBC 4.66 L (4.70-6.10) M/mm3 Hgb 14.7 (14.0-18.0) g/dL Hct 44.0 (40.0-54.0) % MCV 94.4 (78.0-102.0) fL MCH 31.5 H (27.0-31.0) pg MCHC 33.4 (32-36) g/dL RDW 12.5 (11.6-14.4) % Plt Count 143 L (150-420) K/mm3 MPV 9.2 (8.7-11.0) fl Immature Gran % (Auto) 0.3 H (0.0-0.0) % Neut % (Auto) 71.7 H (50.0-70.0) % Lymph % (Auto) 15.1 L (18.0-42.0) % [place] % (Auto) 11.9 H (2.0-11.0) % Eos % (Auto) 0.6 L (1.0-6.0) % Baso % (Auto) 0.4 (0.0-1.0) % Lymph # (Auto) 1.88 (1.10-4.50) K/mm3 [place] # (Auto) 1.48 H (0.10-0.90) K/mm3 Eos # (Auto) 0.07 (0.02-0.50) K/mm3 Baso # (Auto) 0.05 (0.00-0.10) K/mm3 Abs Immat Gran (auto) 0.04 H (0.00-0.00) K/mm3 Absolute Neuts (auto) 8.96 H (1.70-7.20) K/mm3 Absolute Nucleated RBC 0.00 (0.00-0.00) K/mm3 Nucleated RBC % 0.0 (0-0.0) % Sodium 138 (136-145) mmol/L Potassium 3.4 L (3.5-5.1) mmol/L Chloride 96 L (98-108) mmol/L Carbon Dioxide 27 (21-32) mmol/L Anion Gap 15 H (4-12) mmol/L BUN 5 L (7-18) mg/dL Creatinine 0.98 (0.70-1.30) mg/dL Estim Creat Clear Calc 115 ml/min Estimated GFR > 60 (59 - ) Glucose 117 H (70-99) mg/dL Calculated Osmolality 284 L (285-295) mOsm/kg Calcium 8.7 (8.5-10.1) mg/dL Total Bilirubin 0.8 (0.00-1.00) mg/dL AST 155 H (15-37) U/L ALT 182 H (16-63) U/L Alkaline Phosphatase 106 (46-116) U/L Total Protein 7.5 (6.4-8.2) g/dL Albumin 3.4 (3.4-5.0) g/dL Influenza A (RT-PCR) Negative (Negative) Influenza B (RT-PCR) Negative (Negative) RSV (RT-PCR) Negative (Negative) SARS-CoV-2 RNA (RT-PCR) Positive A (Negative) Discharge Plan Discharge Clinical Impression: Pneumonia, COVID Condition: Stable Patient Language: Cymraes Prescriptions: New levofloxacin 750 mg tablet 750 mg PO DAILY Qty: 4 0RF prednisone 50 mg tablet 50 mg PO DAILY Qty: 4 0RF Paxlovid 300 mg (150 mg x 2)-100 mg tablets,dose pack See Rx Instructions .ROUTE .COMPLEX Qty: 30 0RF Rx Instructions: take TWO 150 mg tablets of nirmatrelvir with ONE 100 mg tablet of ritonavir twice daily for 5 days No Action pantoprazole [Protonix] 40 mg tablet,delayed release (DR/EC) 40 mg PO HS 42 Days Qty: 42 0RF Follow-up/Referrals: Álvaro Metcalf MD [Primary Care Provider] - Stand Alone Forms: Work/School Release IP
[2024-05-28 18:16] LABS: Basophils Absolute Auto 0.05 K/mm3 (0.00-0.10); Basophils Percent Auto 0.4 % (0.0-1.0); Eosinophils Absolute Auto 0.07 K/mm3 (0.02-0.50); Eosinophils Percent Auto 0.6 % (1.0-6.0); Hemoglobin 14.7 g/dL (14.0-18.0); Immature Granulocyte Absolute 0.04 K/mm3 (0.00-0.00); Immature Granulocyte Percent A 0.3 % (0.0-0.0); Lymphocytes Absolute Auto 1.88 K/mm3 (1.10-4.50); Lymphocytes Percent Auto 15.1 % (18.0-42.0); Mean Corpuscular HGB Conc 33.4 g/dL (32-36); Mean Corpuscular Hemoglobin 31.5 pg (27.0-31.0); Mean Corpuscular Volume 94.4 fL (78.0-102.0); Mean Platelet Volume 9.2 fl (8.7-11.0); Monocytes Absolute Auto 1.48 K/mm3 (0.10-0.90); Monocytes Percent Auto 11.9 % (2.0-11.0); Neutrophils Absolute Auto 8.96 K/mm3 (1.70-7.20); Neutrophils Percent Auto 71.7 % (50.0-70.0); Platelet Count Result 143 K/mm3 (150-420); Red Blood Count 4.66 M/mm3 (4.70-6.10); Red Cell Distribution Width 12.5 % (11.6-14.4); White Blood Count 12.5 K/mm3 (4.8-10.8)
[2024-05-28 18:32] LABS: Alanine Aminotransferase 182 U/L (16-63); Albumin Level 3.4 g/dL (3.4-5.0); Alkaline Phosphatase 106 U/L (46-116); Anion Gap 15 mmol/L (4-12); Aspartate Amino Transferase 155 U/L (15-37); Bilirubin,Total 0.8 mg/dL (0.00-1.00); Blood Urea Nitrogen 5 mg/dL (7-18); Calcium 8.7 mg/dL (8.5-10.1); Carbon Dioxide 27 mmol/L (21-32); Chloride 96 mmol/L (98-108); Estimated CRCL calculation 115 ml/min; Estimated Glomerular Filt Rate > 60; Glucose 117 mg/dL (70-99); Osmolality Calculated 284 mOsm/kg (285-295); Potassium 3.4 mmol/L (3.5-5.1); Sodium 138 mmol/L (136-145); Total Protein 7.5 g/dL (6.4-8.2)
[2024-05-28 18:41] LABS: SARS-CoV-2 RNA PCR Positive (Negative)
[2024-05-28 18:43] LABS: Influenza A QL RT-PCR Negative (Negative); Influenza B QL RT-PCR Negative (Negative); RSV RNA, RT-PCR Negative (Negative)
[2024-05-28] MEDS: levoFLOXacin TAB 500 MG, levoFLOXacin TAB 250 MG 750 MG PO (18:49)
[2024-05-28] MEDS: predniSONE 40 MG, predniSONE 10 MG 50 MG PO (18:49)
[2024-05-28 18:57] VITALS: BP 137/87; PULSE 94; RESP 15; TEMP 37.1; O2SAT 96
== END 2024-05-28 18:58 | disposition home or self-care (01) ==
PROVIDERS: Emergency Provider Family Medicine; PCP Internal Medicine
DX: J18.9 Pneumonia, unspecified organism (principal); U07.1 COVID-19
CPT/HCPCS: 36415; 71045; 80053; 85025; 87637; 99283; A9270; J7512

== ENCOUNTER 2024-05-29 21:53 | Emergency (ER) | payer OTHER, BC, SELFPAY ==
[2024-05-29 21:53] VITALS: BP 0/0; PULSE 0; RESP 0; O2SAT 0
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
--- OUTSIDE RECORDS SUMMARY | 2024-05-29 21:58 | XMS_ITS | Clinical Summary ---
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
--- OUTSIDE RECORDS SUMMARY | 2024-05-29 22:24 | XMS_ITS | Clinical Summary ---
Author Organization 

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
--- NOTE | 2024-05-30 03:09 | PC.NURSE ---
[facility], CALLED TO COLLECT INFORMATION ABOUT TISSUE DONATION. SAVING SIGHT TO DEFLECT DONATION DUE TO RECENT DIAGNOSIS OF COVID ON 05/28/24. STATES BODY MAY BE RELEASED TO [facility].
== END 2024-05-30 00:10 | disposition expired ==
PROVIDERS: Emergency Provider Emergency Medicine
DX: I46.9 Cardiac arrest, cause unspecified (principal); S01.81XA Laceration without foreign body of other part of head, initial encounter; S29.9XXA Unspecified injury of thorax, initial encounter; S19.9XXA Unspecified injury of neck, initial encounter; U07.1 COVID-19; V47.0XXA Car driver injured in collision with fixed or stationary object in nontraffic accident, initial encounter
CPT/HCPCS: 92950; 99285; J0171; J1610; J2310; J7030